=== PATIENT | male | born 1995 | race Two or more races ===

== ENCOUNTER 2017-04-02 10:19 | Emergency (ER) | payer OTHER ==
[~2017-04-02] VITALS: Ht 188 cm; Wt 98.0 kg
[2017-04-02 10:20] VITALS: BP 167/90; PULSE 60; RESP 60; TEMP 97.6; O2SAT 100
--- NOTE | 2017-04-02 10:33 | PD ---
Physical Exam Time Seen by Provider: 10:32 Narrative 21yo M c/o nausea and vomiting since 7 am this morning. Denies abd pain, diarrhea, fever. Patient seen in triage. VS reviewed. Patient awaiting medical bed. Data Data Last Documented VS Vital Signs Date Time Temp Pulse Resp B/P Pulse Ox O2 Delivery O2 Flow Rate FiO2 04/02/17 10:20 97.6 60 60 167/90 100 MDM Supervised Visit with WILMAN: Betzaida Quintanilla Apr 02, 2017 10:33
[2017-04-02 12:55] VITALS: BP 148/97; PULSE 61; RESP 19; TEMP 97.6; O2SAT 100
[2017-04-02 13:00] VITALS: BP 148/97; PULSE 61; RESP 19; TEMP 97.6; O2SAT 100
[2017-04-02] MEDS ORDERED: SODIUM CHLOR 0.9% 1000 ML INJ 1,000 ML IV ONE (13:08)
[2017-04-02] MEDS ORDERED: SODIUM CHLORIDE 0.9% FLUSH 10 ML FLUSH IVF PRN (13:15)
[2017-04-02] MEDS ORDERED: ONDANSETRON HCL 4 MG/2 ML VIAL IVP ONE (13:15)
--- NOTE | 2017-04-02 13:22 | PD ---
HPI Chief Complaint: GI Complaint Time Seen by Provider: 13:18 Travel History International Travel<30 days: No Contact w/Intl Traveler<30days: No Traveled to known affect area: No History of Present Illness HPI Patient is a 21-year-old male presenting to emergency department for evaluation of nausea and vomiting that started at 7:00 this morning. He denies any contact with possible contaminated foods, no sick contacts. He states he felt fine yesterday until awakening this morning. He states that since he has been the emergency department he has developed a feeling of shortness of breath. He denies any abdominal pain, diarrhea, fever, chills, headache, neck pain. Patient further denies any significant past medical history. He denies any IV drug use or alcohol use. PFSH Past Medical History Medical History: Denies Significant Hx Tetanus Vaccination: Unknown Social History Alcohol Use: No Tobacco Use: No Substance Use: No Allergies-Medications (Allergen,Severity, Reaction): Coded Allergies: No Known Allergies (Unverified , 04/02/17) Reported Meds & Prescriptions Reported Meds & Active Scripts Active Zofran Odt (Ondansetron Odt) 4 Mg Tab 4 Mg SL Q6HR PRN 3 Days Review of Systems Except as stated in HPI: all other systems reviewed are Neg HENT: No: Headaches, Lightheadedness Cardiovascular: No: Chest Pain or Discomfort Respiratory: Positive: Shortness of Breath, No: Cough, Pleuritic Pain Gastrointestinal: Positive: Nausea, Vomiting, No: Diarrhea, Abdominal Pain, Changes in Bowel Habits Genitourinary: No: Dysuria Musculoskeletal: No: Myalgias Neurologic: No: Weakness, Dizziness, Syncope Physical Exam Narrative GENERAL: Well-developed, well-nourished, alert male. Resting comfortably in no acute distress. SKIN: Warm and dry. HEAD: Atraumatic. Normocephalic. EYES: Pupils equal and round. No scleral icterus. No injection or drainage. ENT: No nasal bleeding or discharge. Mucous membranes pink and moist. NECK: Trachea midline. No JVD. CARDIOVASCULAR: Regular rate and rhythm. RESPIRATORY: No accessory muscle use. Clear to auscultation. Breath sounds equal bilaterally. GASTROINTESTINAL: Abdomen soft, non-tender, nondistended. Hepatic and splenic margins not palpable. Positive bowel sounds, no rebound, no guarding. MUSCULOSKELETAL: Extremities without clubbing, cyanosis, or edema. No obvious deformities. NEUROLOGICAL: Awake and alert. No obvious cranial nerve deficits. Motor grossly within normal limits. Five out of 5 muscle strength in the arms and legs. Normal speech. PSYCHIATRIC: Appropriate mood and affect; insight and judgment normal. Data Data Last Documented VS Vital Signs Date Time Temp Pulse Resp B/P Pulse Ox O2 Delivery O2 Flow Rate FiO2 04/02/17 13:00 97.6 61 19 148/97 100 Room Air Orders Complete Blood Count With Diff (04/02/17 13:08) Comprehensive Metabolic Panel (04/02/17 13:08) Lipase (04/02/17 13:08) Iv Access Insert/Monitor (04/02/17 13:08) Ecg Monitoring (04/02/17 13:08) Oximetry (04/02/17 13:08) Ondansetron Inj (Zofran Inj) (04/02/17 13:15) Sodium Chlor 0.9% 1000 Ml Inj (Ns 1000 M (04/02/17 13:08) Sodium Chloride 0.9% Flush (Ns Flush) (04/02/17 13:15) Chest, Single Ap (04/02/17 13:08) Labs Laboratory Tests Test 04/02/17 13:20 White Blood Count 18.0 TH/MM3 Red Blood Count 5.69 MIL/MM3 Hemoglobin 16.6 GM/DL Hematocrit 47.1 % Mean Corpuscular Volume 82.7 FL Mean Corpuscular Hemoglobin 29.2 PG Mean Corpuscular Hemoglobin 35.3 % Concent Red Cell Distribution Width 13.1 % Platelet Count 290 TH/MM3 Mean Platelet Volume 7.7 FL Neutrophils (%) (Auto) 92.8 % Lymphocytes (%) (Auto) 4.0 % Monocytes (%) (Auto) 2.8 % Eosinophils (%) (Auto) 0.1 % Basophils (%) (Auto) 0.3 % Neutrophils # (Auto) 16.7 TH/MM3 Lymphocytes # (Auto) 0.7 TH/MM3 Monocytes # (Auto) 0.5 TH/MM3 Eosinophils # (Auto) 0.0 TH/MM3 Basophils # (Auto) 0.1 TH/MM3 CBC Comment DIFF FINAL Differential Comment Sodium Level 139 MEQ/L Potassium Level 4.2 MEQ/L Chloride Level 106 MEQ/L Carbon Dioxide Level 24.9 MEQ/L Anion Gap 8 MEQ/L Blood Urea Nitrogen 15 MG/DL Creatinine 0.94 MG/DL Estimat Glomerular Filtration 102 ML/MIN Rate Random Glucose 112 MG/DL Calcium Level 9.6 MG/DL Total Bilirubin 0.6 MG/DL Aspartate Amino Transf 23 U/L (AST/SGOT) Alanine Aminotransferase 49 U/L (ALT/SGPT) Alkaline Phosphatase 96 U/L Total Protein 8.2 GM/DL Albumin 4.4 GM/DL Lipase 61 U/L MDM Medical Decision Making Medical Screen Exam Complete: Yes Emergency Medical Condition: Yes Interpretation(s) Last Impressions Chest X-Ray 04/02/17 1308 Signed Impressions: Service Date/Time: Sunday, April 02, 2017 13:25 - CONCLUSION: No acute disease. Dante Floyd MD FACR Laboratory Tests Test 04/02/17 13:20 White Blood Count 18.0 TH/MM3 Red Blood Count 5.69 MIL/MM3 Hemoglobin 16.6 GM/DL Hematocrit 47.1 % Mean Corpuscular Volume 82.7 FL Mean Corpuscular Hemoglobin 29.2 PG Mean Corpuscular Hemoglobin 35.3 % Concent Red Cell Distribution Width 13.1 % Platelet Count 290 TH/MM3 Mean Platelet Volume 7.7 FL Neutrophils (%) (Auto) 92.8 % Lymphocytes (%) (Auto) 4.0 % Monocytes (%) (Auto) 2.8 % Eosinophils (%) (Auto) 0.1 % Basophils (%) (Auto) 0.3 % Neutrophils # (Auto) 16.7 TH/MM3 Lymphocytes # (Auto) 0.7 TH/MM3 Monocytes # (Auto) 0.5 TH/MM3 Eosinophils # (Auto) 0.0 TH/MM3 Basophils # (Auto) 0.1 TH/MM3 CBC Comment DIFF FINAL Differential Comment Sodium Level 139 MEQ/L Potassium Level 4.2 MEQ/L Chloride Level 106 MEQ/L Carbon Dioxide Level 24.9 MEQ/L Anion Gap 8 MEQ/L Blood Urea Nitrogen 15 MG/DL Creatinine 0.94 MG/DL Estimat Glomerular Filtration 102 ML/MIN Rate Random Glucose 112 MG/DL Calcium Level 9.6 MG/DL Total Bilirubin 0.6 MG/DL Aspartate Amino Transf 23 U/L (AST/SGOT) Alanine Aminotransferase 49 U/L (ALT/SGPT) Alkaline Phosphatase 96 U/L Total Protein 8.2 GM/DL Albumin 4.4 GM/DL Lipase 61 U/L Vital Signs Date Time Temp Pulse Resp B/P Pulse Ox O2 Delivery O2 Flow Rate FiO2 04/02/17 12:55 97.6 61 19 148/97 100 Room Air 04/02/17 12:55 19 04/02/17 10:20 97.6 60 60 167/90 100 Differential Diagnosis Gastroenteritis versus cholecystitis versus appendicitis versus pancreatitis versus obstruction versus metabolic abnormality versus other Narrative Course Patient is a 21-year-old well-appearing male presenting for evaluation of nausea and vomiting. Vital signs are stable, patient is afebrile. Will obtain basic labs, hydrate with IV fluids and Zofran. CBC with a white count of 18.0 with left shift he is unremarkable, chest x-ray is negative. Elevated WBC seems suspicious for infection however abdominal exam is completely benign, pt denies any urinary symptoms. Pt tolerated PO challenge. Pt reassessed and reports feeling better after IVF and zofran. Pt was given strict return precautions. Father at bedside and also verbalized understanding of instructions. Pt is stable for discharge. Diagnosis Primary Impression: Nausea & vomiting Qualified Code: R11.2 - Nausea and vomiting, intractability of vomiting not specified, unspecified vomiting type Referrals: Primary Care Physician 2 days Patient Instructions: Acute Nausea and Vomiting (ED), General Instructions Additional Instructions: Increase fluid intake [place], easy to digest diet, increase as tolerated Take medications as directed Return to the Emergency department immediately for any new or worsening symptoms Med/Other Pt SpecificInfo: Prescription(s) given Scripts Ondansetron Odt (Zofran Odt)4 Mg Tab4 Mg SL Q6HR PRN (Nausea/Vomiting) 3 Days Ref 0 Prov:Cydney Carlson 04/02/17 Disposition: 01 DISCHARGE HOME Condition: Stable Cydney Carlson Apr 02, 2017 13:22
[2017-04-02 13:28] LABS: AUTOMATED NEUTROPHIL # 16.7 TH/MM3 (1.8-7.7); BASOPHIL # 0.1 TH/MM3 (0-0.2); BASOPHIL % 0.3 % (0.0-2.0); EOSINOPHIL % 0.1 % (0.0-4.0); HEMATOCRIT 47.1 % (39.0-51.0); HEMO FLAGS DIFF FINAL; LYMPHOCYTE # 0.7 TH/MM3 (1.0-4.8); MEAN CELL VOLUME 82.7 FL (80.0-100.0); MEAN CORPUSCULAR HEMOGLOBIN 29.2 PG (27.0-34.0); MEAN CORPUSCULAR HGB CONC 35.3 % (32.0-36.0); MONO % 2.8 % (0.0-8.0); NEUT % 92.8 % (16.0-70.0); PLATELET COUNT 290 TH/MM3 (150-450); RED BLOOD COUNT 5.69 MIL/MM3 (4.50-5.90); RED CELL DISTRIBUTION WIDTH 13.1 % (11.6-17.2)
[2017-04-02 13:44] LABS: ANION GAP 8 MEQ/L (5-15); AST (GOT) 23 U/L (15-39); BICARBONATE 24.9 MEQ/L (21.0-32.0); BLOOD UREA NITROGEN 15 MG/DL (7-18); CHLORIDE 106 MEQ/L (98-107); GLOMERULAR FILTRATION RATE 102 ML/MIN (>89); POTASSIUM 4.2 MEQ/L (3.5-5.1); SODIUM (NA) 139 MEQ/L (136-145)
[2017-04-02 13:47] LABS: ALKALINE PHOSPHATASE 96 U/L (45-117); ALT (GPT) 49 U/L (9-52); TOTAL BILIRUBIN ADULT 0.6 MG/DL (0.2-1.0)
--- NOTE | 2017-04-02 14:08 | RADRPT ---
EXAM DATE/TIME: 04/02/2017 13:25 [facility] COMPARISON: No previous studies available for comparison. INDICATIONS : Vomiting and short of breath today. MEDICAL HISTORY : None. SURGICAL HISTORY : None. ENCOUNTER: Initial ACUITY: 1 day PAIN SCORE: 2/10 LOCATION: Bilateral chest FINDINGS: A single view of the chest demonstrates the lungs to be symmetrically aerated without evidence of mas s, infiltrate or effusion. The cardiomediastinal contours are unremarkable. Osseous structures are intact. CONCLUSION: No acute disease. Dante Floyd MD FACR on April 02, 2017 at 14:06 Board Certified Radiologist. This report was verified electronically.
[2017-04-02] MEDS ORDERED: ZOFR4TAB3 SL (15:15)
[2017-04-02 15:26] VITALS: BP 141/84
== END 2017-04-02 15:29 | disposition home or self-care (01) ==
LOC: NEPD 10:19
DX: R11.2 Nausea with vomiting, unspecified (principal)
CPT/HCPCS: 71010; 80053; 83690; 85025; 96361; 96374; 99284; J2405; J7030